=== PATIENT | male | born 1965 | race Caucasian/White ===

== ENCOUNTER 2022-12-25 16:54 | Inpatient (IN) | payer MEDICARE ==
[2022-12-25] MEDS ORDERED: ACETAMINOPHEN TAB 325 MG TAB PO PRN (17:45)
[2022-12-25] MEDS ORDERED: MAGNESIUM HYDROXIDE 2,400 MG/30 ML CUP PO PRN (17:45)
[2022-12-25] MEDS ORDERED: MAG HYDROX/AL HYDROX/SIMETH 30 ML CUP PO PRN (17:45)
[2022-12-25] MEDS ORDERED: LORazepam 1 MG TAB PO PRN ×2 (17:45)
[2022-12-25] MEDS ORDERED: HALOPERIDOL LACTATE 5 MG/ML 1 ML VIAL IM PRN (17:47)
[2022-12-25] MEDS ORDERED: QUEtiapine 50 MG TAB PO SCH (21:00)
[2022-12-26] MEDS: LEVOTHYROXINE 25 MCG TAB PO SCH (05:54)
[2022-12-26] MEDS: lisinopriL 10 MG TAB PO SCH (08:36)
[2022-12-26] MEDS ORDERED: NICOTINE 14MG/24HR PATCH TRANSDERM SCH (09:00)
[2022-12-26] MEDS ORDERED: ARIPiprazole 10 MG TAB PO SCH (09:00)
[2022-12-26] MEDS ORDERED: ESCITALOPRAM 20 MG TAB PO SCH (09:00)
[2022-12-26] MEDS ORDERED: PALIPERIDONE 3 MG TAB.ER.24 PO STA (10:09)
[2022-12-26] MEDS ORDERED: LORazepam 2 MG/ML INJ IM PRN (10:12)
[2022-12-26] MEDS ORDERED: LORazepam 1 MG TAB PO PRN (10:12)
[2022-12-26] MEDS: diazePAM 5 MG TAB PO PRN ×2 (10:55→18:45)
--- NOTE | 2022-12-26 10:57 | P.HP ---
Psychiatric H&P - . H&P Date: 12/26/22 History & Physical: Allergies Allergy/AdvReac Type Severity Reaction Status Date / Time No Known Allergies Allergy Verified 12/25/22 17:44 Vital Signs Temp 97.7 F 12/26/22 09:14 Pulse 69 12/26/22 09:14 Resp 20 12/26/22 09:14 BP 154/84 12/26/22 09:14 Pulse Ox 99 12/26/22 09:14 FiO2 Intake & Output 12/25/22 12/26/22 12/26/22 18:59 06:59 18:59 Weight 83.688 kg 84.55 kg 12/26/22 10:56 IDENTIFYING DATA: Patient is a single, on disability, 57-year-old male with a significant history of bipolar disorder who presented to our hospital from [facility] through central intake for acute jodi. HPI: Patient presented to the hospital on 12/25/2022 after initially presenting to [facility] for psychiatrc evaluation. The patient was noted to be overtly manic, confrontational, and requiring medications for agitation. He reportedly has been off his home medications of seroquel and trileptal for 3-4 weeks prior to his presentation to the ED. The patient was subsequently petitioned and certified and transferred to our psychiatric unit. Upon evaluations on our psychiatric unit, the patient is grossly manic. He is confrontational with peers, yelling many racial and sexual slurs. He is also displaying significant symptoms of jodi including pressured and loud speech, grandiosity (often states he is the smartest person in the hospital), mood lability (laughing, crying, and angry), and impulsivity. He is unable to provide a clear history of events leading up to this hospitalization however admits to his medication nonadherence. He states he was first manic at the age of 45. He reports that although he is currently "manic and bipolar 3" he has been sleeping well everynight for the past few months. He does state however that he has not eaten in the past 4-5 days. He does not report any suicidal or homicidal ideation, intention, and/or plan. He reports no prior attempts at suicide. He denies any depressive symptoms currently. In regards to psychotic symptoms, he is denying any auditory or visual hallucinations. He reports no paranoia or other delusions aside from grandiosity at this time. The patient states he is agreeable to treatment and will take medications prescribed by this provider however is demanding valium, coffee, a wristwatch and the use of his phone. PAST PSYCHIATRIC HISTORY: Patient states that he has been previously diagnosed with bipolar disorder. His current home medications include abilify, lexapro, seroquel. He however admits to nonadhernence. He recalls being previously prescribed lithium and zyprexa as well in the past. He reports he was last hospitalized in 2014 at [facility]. He reports outpatient psychiatric outpatient follow-up in [facility]. Patient denies any history of suicide at [facility] in the past. PMH: HTN ALLERGIES: NKDA CHEMICAL DEPENDENCY HISTORY: There is a [facility] days a week - approximately 2 beers and a few glasses of wine per day. However, the patient is denying any heavy alcohol use stating a pack of beer lasts him over a year. He reports no illicit drug use. He reports 1 gram of marijuana per day. He reports 2 PPD of tobacco use. FAMILY PSYCHIATRIC/SUBSTANCE USE HISTORY: Unable to determine. Patient states "my family wants nothing to do with me." SOCIAL HISTORY: Patient reports that he is single, never , but has 3 children. He reports his adult children are ages 28, 30, and 35. He is currently on disability. 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 MENTAL STATUS EXAM: General Appearance: Patient appears to be stated age is alert, difficult to direct, but attempts to cooperate. Patient appears to have fair hygiene and grooming. Behavior: Patient displays psychomotor agitation. Speech: Patient's speech is pressured, loud in volume, tangential. Mood/Affect: Patient reports their mood is "I NEED COFFEE!" Affect is expansive, labile. Suicidality/Homicidality: Patient denies suicidal and homicidal ideation. Perceptions: Patient reports no auditory or visual hallucinations. Though content/process: Flight of ideas, grandiose delusions, tangential. Memory and concentration: Grossly poor secondary to jodi Judgment and insight: Poor LABS FROM [facility]: No significant result except for pending T4. AST slightly elevated at 48. UDS positive for cannabis only. STRENGTHS/WEAKNESSES: Unable to identify patient strengths. Weakness is patient is nonadherent with treatment and has severe bipolar disorder. INTELLECT: average IMPRESSIONS: Bipolar 1 disorder, severe, manic episode Tobacco Use Disorder Cannabis Use Disorder PLAN: -Patient is admitted under involuntary status to [facility] for stabilization of psychiatric symptoms and safety. A second certification was completed and along with petition will be filed for court. -Medications : Will start patient on Valproic acid solution 500 mg twice a day for mood stabilization Invega 3 mg a day for mood stabilization/psychosis Valium 5 mg BID PRN for agitation/anxiety -Haldol and Ativan PRN for agitation/aggression -Patient was counselled on substance abuse and desired to cut back on use -Patient was informed of the risks, benefits and side effects of the medication and patient verbally consented to taking the medications. Patient signed med consent form and was placed in chart. -Internal Medicine consult to perform medical evaluation and physical. -NRT - nicotine patch -SW on board for discharge planning. Encourage patient to participate in groups to work on coping skills. 12/26/22 10:56
[2022-12-26] MEDS ORDERED: NICOTINE GUM (POLACRILEX) 2 MG GUM BUCCAL PRN (11:40)
[2022-12-26] MEDS: LORazepam 1 MG TAB PO PRN (14:19)
[2022-12-26] MEDS: NICOTINE GUM (POLACRILEX) 2 MG GUM BUCCAL PRN ×2 (14:19→20:12)
[2022-12-26] MEDS: NICOTINE 21MG/24HR PATCH TRANSDERM SCH (16:34)
[2022-12-26] MEDS: haloperidoL 5 MG TAB PO PRN (18:45)
[2022-12-26] MEDS: VALPROIC ACID ORAL SOLN 250 MG/5 ML CUP PO SCH (20:13)
--- NOTE | 2022-12-26 23:47 | P.CONS ---
History of Present Illness - Reason for Consult Consult date: 12/26/22 - History of Present Illness Patient is a 57-year-old male with a PMH of bipolar disorder and anxiety and tobacco abuse who had presented to the emergency room at an outside facility with symptoms of jodi. Patient was subsequently transferred to [facility] unit where he was seen and evaluated. The patient reports that he had been feeling depressed after his children and did not return his calls or speak to him for Father's Day. He denied any physical complaints at the time of interview. He reports smoking 2 packs of cigarettes daily. He denied alcohol or substance use. Review of systems: Pertinent positives and negatives as discussed in HPI, a complete review of systems was performed and all other systems are negative. Physical examination: Vital signs reviewed General: non toxic, no distress, appears at stated age, normal weight Derm: no unusual rashes/lesions, warm Head: atraumatic, normocephalic, symmetric Eyes: EOMI, no lid lag, anicteric sclera, pupils equal round reactive to light ENT: Nose and ears atraumatic Neck: No cervical lymphadenopathy, trachea midline, supple Mouth: no lip lesion, mucus membranes moist Cardiovascular: S1S2 reg, no murmur, positive dorsalis pedis pulse bilateral, no edema Lungs: CTA bilateral, no rhonchi, no rales, no accessory muscle use Abdominal: soft, nontender to palpation, no guarding Ext: muscle strength 5 out of 5 in all 4 extremities grossly, no gross muscle atrophy, no contractures, Neuro: CN II-XI grossly intact, no gross focal neuro deficits Psych: Alert, oriented, appropriate affect Assessment: Tobacco abuse Bipolar disorder Plan: Advised on the importance of cessation of tobacco use Defer management of bipolar disorder to the primary psychiatry service Past Medical History Additional Past Medical History / Comment(s): apendectomy, colonoscopy, wound debridement, tonsillectomy History of Any Multi-Drug Resistant Organisms: None Reported Past Surgical History: Appendectomy, Tonsillectomy Additional Past Surgical History / Comment(s): see above Past Psychological History: Anxiety, Bipolar, Depression Smoking Status: Current every day smoker Medications and Allergies Allergies Allergy/AdvReac Type Severity Reaction Status Date / Time No Known Allergies Allergy Verified 12/25/22 17:44 Physical Exam Vitals: Vital Signs Temp Pulse Resp BP Pulse Ox 12/26/22 09:14 97.7 F 69 20 154/84 99 12/25/22 23:40 97.4 F L 61 18 143/72 Intake and Output 12/26/22 12/26/22 12/26/22 06:59 14:59 22:59 Other: Weight 84.55 kg
[2022-12-27] MEDS: LEVOTHYROXINE 25 MCG TAB PO SCH (06:03)
[2022-12-27 07:05] VITALS: RESP 16
[2022-12-27] MEDS: PALIPERIDONE 6 MG TAB.ER.24 PO SCH (08:59)
[2022-12-27] MEDS: VALPROIC ACID ORAL SOLN 250 MG/5 ML CUP PO SCH ×2 (08:59→21:17)
[2022-12-27] MEDS: lisinopriL 10 MG TAB PO SCH (08:59)
[2022-12-27] MEDS: NICOTINE 21MG/24HR PATCH TRANSDERM SCH (08:59)
[2022-12-27] MEDS: diazePAM 5 MG TAB PO PRN (10:50)
[2022-12-27] MEDS: NICOTINE GUM (POLACRILEX) 2 MG GUM BUCCAL PRN ×2 (10:50→14:58)
--- NOTE | 2022-12-27 11:55 | P.PN ---
Progress Note - Text Progress Note Date: 12/27/22 Interval History: Patient was seen attending group and was directable and agreeable to speak with sheet writer in the office. Patient continues to display significant symptoms of jodi. He is very expansive in his affect and has been getting into numerous verbal altercation with peers. His mood continues to be labile. The patient continues to be grandiose. He states that he is suing numerous individuals. He has been adherent with his medications otherwise is not reporting any significant side effects. He is agreeable to titration of his medications. He has been able to sleep last night. He reports no suicidal or homicidal ideation, intention, and/or plan. Mental Status Exam: General Appearance: Patient appears to be stated age is alert, mostly directable, and cooperative. Behavior: Patient continues to display elevated psychomotor activity. Speech: Patient's speech is fluent and nonpressured. Loud in volume, spontaneous. Less pressured. Mood/Affect: Mood is "excellent." Affect is expansive and grandiose. Suicidality/Homicidality: Patient denies any suicidal or homicidal ideation, intention, and/or plan. Perceptions: Patient denies any visual hallucinations and denies any auditory hallucinations Though content/process: Grandiose. More linear and logical today. Memory and concentration: AOX3, grossly intact for the purposes of this session Judgment and insight: Improving mildly Vital Signs Temp 97.8 F 12/27/22 07:04 Pulse 67 12/27/22 09:07 Resp 16 12/27/22 07:04 BP 115/78 12/27/22 09:07 Pulse Ox 97 12/27/22 07:04 FiO2 Assessment Bipolar 1 disorder, severe, manic episode Tobacco Use Disorder Cannabis Use Disorder Plan: -Patient continues to meet criteria for inpatient psychiatric admission for symptom stabilization and safety. The patient has been petitioned and certified. -Medications: Increase Invega to 6 mg by mouth daily for mood stabilization/psychosis. Increase to invega 9 mg over the weekend. Consider STONE on Friday. Increase Depakote solution to 500 mg in the morning and 1000 mg at bedtime for mood stabilization Depakote level ordered for Friday. Valium 5 mg BID PRN for agitation/anxiety -Haldol and Ativan PRN for agitation/aggression -NRT - nicotine patch -SW on board for discharge planning. Encouraged the patient to participate in milieu.
[2022-12-27] MEDS: LORazepam 1 MG TAB PO PRN (14:58)
[2022-12-27] MEDS: haloperidoL 5 MG TAB PO PRN (14:58)
[2022-12-27 15:13] VITALS: BMI 27.5
[2022-12-28] MEDS: LEVOTHYROXINE 25 MCG TAB PO SCH (06:31)
[2022-12-28] MEDS: VALPROIC ACID ORAL SOLN 250 MG/5 ML CUP PO SCH (09:00)
[2022-12-28] MEDS: NICOTINE GUM (POLACRILEX) 2 MG GUM BUCCAL PRN (09:01)
[2022-12-28] MEDS: lisinopriL 10 MG TAB PO SCH (09:01)
[2022-12-28] MEDS: PALIPERIDONE 6 MG TAB.ER.24 PO SCH (09:03)
--- NOTE | 2022-12-28 10:08 | P.PN ---
Progress Note - Text Progress Note Date: 12/28/22 Interval history: Patient was seen wandering the hallways and was directable and agreeable to s peak with teletypewriter operator. Patient was more directable today and more cooperative during the interview. He appears to be less intrusive as well. His voice and tone also seem to be improving. He claimed that he was "medication resistant". He spoke more about why he came to the hospital. He claims that he is trying to go to some groups and was fairly visible on the unit. He has been taking medications. He states that he believes the Depakote dose is high for him however is agreeable to continue taking it. Denies any depression or anxiety. Claims that he slept better last night. At this time patient denies any suicidal or homicidal ideations intent or plan. Denies any Auditory or visual hallucinations. Patient denies any side effects from the medications and has been compliant with meds. Mental status exam: General Appearance: Patient appears to be stated age is alert, directable, and tends to be cooperative. Behavior: No agitated behavior. Patient is calm and directable, more organized today. Speech: Patient's speech is fluent and nonpressured. Less loud and intrusive. Mood/Affect: Mood is improving mildly, affect is congruent and constricted. Suicidality/Homicidality: Patient denies having any suicidal or homicidal ideation intent or plan. Perceptions: Patient denies any auditory or visual hallucinations. Though content/process: There is no evidence of any delusional thought content and thought process is linear and goal-directed. Less intrusive today. More focused on topic. Memory and concentration: AOX3, grossly intact for the purposes of this session Judgment and insight: Poor, improving mildly Assessment/Plan: Continue with current diagnosis. Patient continues to meet criteria for inpatient psychiatric admission for symptom stabilization and safety.Patient will be maintained on current psychotropic medication regimen. Monitor for medication compliance and for any psychotropic medication side effects. Will continue to monitor ongoing response to treatment. Encouraged participation in milieu.
[2022-12-28] MEDS: diazePAM 5 MG TAB PO PRN (11:14)
[2022-12-28] MEDS ORDERED: chlorproMAZINE 25 MG TAB PO ONE (11:56)
[2022-12-28] MEDS ORDERED: chlorproMAZINE 25 MG TAB PO PRN (12:01)
[2022-12-28] MEDS ORDERED: chlorproMAZINE 25 MG/ML 2 ML AMP IM PRN (12:01)
[2022-12-28] MEDS: NICOTINE 21MG/24HR PATCH TRANSDERM SCH (12:20)
[2022-12-28] MEDS: LORazepam 1 MG TAB PO PRN (14:15)
[2022-12-29] MEDS: PALIPERIDONE 6 MG TAB.ER.24 PO SCH ×3 (02:01→21:56)
[2022-12-29] MEDS: VALPROIC ACID ORAL SOLN 250 MG/5 ML CUP PO SCH ×3 (02:01→21:58)
[2022-12-29] MEDS: LEVOTHYROXINE 25 MCG TAB PO SCH (06:17)
[2022-12-29] MEDS ORDERED: PALIPERIDONE 3 MG TAB.ER.24 PO SCH (09:00)
[2022-12-29] MEDS: lisinopriL 10 MG TAB PO SCH (09:04)
[2022-12-29] MEDS: NICOTINE 21MG/24HR PATCH TRANSDERM SCH (09:04)
[2022-12-29] MEDS: NICOTINE GUM (POLACRILEX) 2 MG GUM BUCCAL PRN ×2 (09:05→14:42)
[2022-12-29] MEDS: diazePAM 5 MG TAB PO PRN ×2 (11:01→23:43)
[2022-12-29 11:05] LABS: Basophils % (A) 1 %; Eosinophils # (A) 0.3 k/uL (0-0.7); Eosinophils % (A) 5 %; HCT 49.6 % (39.0-53.0); HGB 15.9 gm/dL (13.0-17.5); Lymphocytes # (A) 1.6 k/uL (1.0-4.8); Lymphocytes % (A) 24 %; MCH 29.2 pg (25.0-35.0); MCHC 32.1 g/dL (31.0-37.0); MCV 91.1 fL (80.0-100.0); Mean Platelet Volume 8.1; Monocytes # (A) 0.3 k/uL (0-1.0); Monocytes % (A) 5 %; Neutrophils # (A) 4.3 k/uL (1.3-7.7); Neutrophils % (A) 65 %; Platelet Count 193 k/uL (150-450); RBC 5.44 m/uL (4.30-5.90); RDW 13.8 % (11.5-15.5); WBC 6.5 k/uL (3.8-10.6)
[2022-12-29 11:10] LABS: ALT 18 U/L (4-49); AST 27 U/L (17-59); African American GFR (CKD) >90 (>60 ml/min/1.73 sqM); Albumin 4.1 g/dL (3.5-5.0); Alkaline Phosphatase 54 U/L (38-126); Anion Gap 8 mmol/L; Blood Urea Nitrogen 17 mg/dL (9-20); Calcium 9.3 mg/dL (8.4-10.2); Carbon Dioxide 29 mmol/L (22-30); Chloride 101 mmol/L (98-107); Glucose 85 mg/dL (74-99); Non-African American GFR(CKD) >90 (>60 ml/min/1.73 sqM); Potassium 4.7 mmol/L (3.5-5.1); Sodium 138 mmol/L (137-145); Total Bilirubin 0.5 mg/dL (0.2-1.3); Total Protein 6.8 g/dL (6.3-8.2)
[2022-12-29 11:15] LABS: Valproic Acid (Depakene) 41.5 ug/mL
--- NOTE | 2022-12-29 12:11 | P.PN ---
Progress Note - Text Progress Note Date: 12/29/22 Interval history: Patient was seen wandering the hallways near the nurse's desk speaking to ano ther patient. Patient was agreeable to speak to magnetic tape typewriter operator today for evaluation. Patient earlier had a verbal altercation with another patient earlier in group and was asked to be leave the group today. Patient states that he is doing "okay" and was focused on the Depakote. He states that "I've been trying to convince other doctors to put me on the stuff for a long time". He claims that after he took the Thorazine yesterday he felt like he was "drunk the whole day". We spoke about the use of when necessary medications. He appears to be mildly less intrusive today however still unpredictable. Has been taking his medications. Appears to be less irritable and less demanding today. Claims that he slept fairly last night. He claims that he is trying to go to some groups and was fairly visible on the unit. He has been taking medications. Denies any depression or anxiety. At this time patient denies any suicidal or homicidal ideations intent or plan. Denies any Auditory or visual terrazas ucinations. Patient denies any side effects from the medications and has been compliant with meds. Mental status exam: General Appearance: Patient appears to be stated age is alert, directable, and tends to be subsequently be cooperative. Behavior: No agitated behavior. Patient is calm and directable, more organized today. Speech: Patient's speech is fluent and nonpressured. Less loud and intrusive. Mood/Affect: Mood is improving mildly, affect is congruent and constricted. Suicidality/Homicidality: Patient denies having any suicidal or homicidal ideation intent or plan. Perceptions: Patient denies any auditory or visual hallucinations. Though content/process: There is no evidence of any delusional thought content and thought process is linear and goal-directed. Less intrusive today. More focused on topic. Memory and concentration: AOX3, grossly intact for the purposes of this session Judgment and insight: Poor, improving mildly Assessment/Plan: Continue with current diagnosis. Patient continues to meet criteria for inpatient psychiatric admission for symptom stabilization and safety.Patient will be maintained on current psychotropic medication regimen. Monitor for medication compliance and for any psychotropic medication side effects. Will continue to monitor ongoing response to treatment. Encouraged participation in milieu.
[2022-12-29] MEDS: LORazepam 1 MG TAB PO PRN (15:18)
[2022-12-30] MEDS: VALPROIC ACID ORAL SOLN 250 MG/5 ML CUP PO SCH ×2 (09:00→21:34)
[2022-12-30] MEDS: lisinopriL 10 MG TAB PO SCH (09:00)
[2022-12-30] MEDS: LEVOTHYROXINE 25 MCG TAB PO SCH (09:00)
[2022-12-30] MEDS: PALIPERIDONE 6 MG TAB.ER.24 PO SCH ×2 (09:00→21:34)
[2022-12-30] MEDS: NICOTINE 21MG/24HR PATCH TRANSDERM SCH (09:00)
--- NOTE | 2022-12-30 11:16 | P.PN ---
Progress Note - Text Progress Note Date: 12/30/22 Interval History: Patient was seen resting in bed and was directable and agreeable to speak with database report writer in his room. Currently, the patient is not reporting any suicidal or homicidal ideation, intention, and/or plan. The patient had been episodes of agitation and required Thorazine as needed in order to calm down. This morning however, the patient is alert and oriented in all spheres and is not reporting any significant symptoms of jodi at this time. He denies any grandiose delusions. He reports no racing thoughts. He reports that he is able to sleep well last night. He states that he feels "calm and at peace. He has been adherent with his medications and is not reporting any significant side effects. He reports no issues regarding his sleep or his appetite. Mental Status Exam: General Appearance: Patient appears to be stated age is alert, mostly direc table, and cooperative. Behavior: Patient continues to display elevated psychomotor activity. Speech: Patient's speech is fluent and nonpressured. Normal volume. Spontaneous. Not pressured. Mood/Affect: Mood is "I feel at peace now." Affect is euthymic. Suicidality/Homicidality: Patient denies any suicidal or homicidal ideation, intention, and/or plan. Perceptions: Patient denies any visual hallucinations and denies any auditory hallucinations Though content/process: No overt delusional thought content is endorsed today. Linear and logical conversation. Memory and concentration: AOX3, grossly intact for the purposes of this session Judgment and insight: Improving mildly Vital Signs Temp 97.2 F L 12/30/22 00:19 Pulse 74 12/30/22 09:02 Resp 16 12/30/22 00:19 BP 104/67 12/30/22 09:02 Pulse Ox 97 12/27/22 07:04 FiO2 Intake & Output 12/29/22 12/30/22 12/30/22 18:59 06:59 18:59 Weight 87.9 kg Laboratory Results WBC 6.5 k/uL (3.8-10.6) 12/29/22 09:24 RBC 5.44 m/uL (4.30-5.90) 12/29/22 09:24 Hgb 15.9 gm/dL (13.0-17.5) 12/29/22 09:24 Hct 49.6 % (39.0-53.0) 12/29/22 09:24 MCV 91.1 fL (80.0-100.0) 12/29/22 09:24 MCH 29.2 pg (25.0-35.0) 12/29/22 09:24 MCHC 32.1 g/dL (31.0-37.0) 12/29/22 09:24 RDW 13.8 % (11.5-15.5) 12/29/22 09:24 Plt Count 193 k/uL (150-450) 12/29/22 09:24 MPV 8.1 12/29/22 09:24 Neutrophils % 65 % 12/29/22 09:24 Lymphocytes % 24 % 12/29/22 09:24 Monocytes % 5 % 12/29/22 09:24 Eosinophils % 5 % 12/29/22 09:24 Basophils % 1 % 12/29/22 09:24 Neutrophils # 4.3 k/uL (1.3-7.7) 12/29/22 09:24 Lymphocytes # 1.6 k/uL (1.0-4.8) 12/29/22 09:24 Monocytes # 0.3 k/uL (0-1.0) 12/29/22 09:24 Eosinophils # 0.3 k/uL (0-0.7) 12/29/22 09:24 Basophils # 0.0 k/uL (0-0.2) 12/29/22 09:24 Sodium 138 mmol/L (137-145) 12/29/22 09:24 Potassium 4.7 mmol/L (3.5-5.1) 12/29/22 09:24 Chloride 101 mmol/L (98-107) 12/29/22 09:24 Carbon Dioxide 29 mmol/L (22-30) 12/29/22 09:24 Anion Gap 8 mmol/L 12/29/22 09:24 BUN 17 mg/dL (9-20) 12/29/22 09:24 Creatinine 0.92 mg/dL (0.66-1.25) 12/29/22 09:24 Est GFR (CKD-EPI)AfAm >90 (>60 ml/min/1.73 sqM) 12/29/22 09:24 Est GFR (CKD-EPI)NonAf >90 (>60 ml/min/1.73 sqM) 12/29/22 09:24 Glucose 85 mg/dL (74-99) 12/29/22 09:24 Calcium 9.3 mg/dL (8.4-10.2) 12/29/22 09:24 Total Bilirubin 0.5 mg/dL (0.2-1.3) 12/29/22 09:24 AST 27 U/L (17-59) 12/29/22 09:24 ALT 18 U/L (4-49) 12/29/22 09:24 Alkaline Phosphatase 54 U/L (38-126) 12/29/22 09:24 Total Protein 6.8 g/dL (6.3-8.2) 12/29/22 09:24 Albumin 4.1 g/dL (3.5-5.0) 12/29/22 09:24 Valproic Acid 41.5 ug/mL 12/29/22 09:24 Assessment Bipolar 1 disorder, severe, manic episode Tobacco Use Disorder Cannabis Use Disorder Plan: -Patient continues to meet criteria for inpatient psychiatric admission for symptom stabilization and safety. The patient has been petitioned and certified. Patient is scheduled for deferral today. -Medications: Continue Invega 6 mg by mouth twice a day for mood stabilization/psychosis Continue Depakote 500 mg in the morning and 1000 mg at bedtime for mood stabilization Depakote level ordered for Friday. Valium 5 mg BID PRN for agitation/anxiety -Thorazine and Ativan PRN for agitation/aggression -NRT - nicotine patch - on board for discharge planning. Encouraged the patient to participate in milieu.
[2022-12-30] MEDS: NICOTINE GUM (POLACRILEX) 2 MG GUM BUCCAL PRN ×2 (16:46→18:59)
[2022-12-30] MEDS: diazePAM 5 MG TAB PO PRN (16:46)
[2022-12-31] MEDS: LEVOTHYROXINE 25 MCG TAB PO SCH (06:39)
[2022-12-31 07:08] VITALS: BP 75/50; PULSE 69; TEMP 98.3
[2022-12-31] MEDS: PALIPERIDONE 6 MG TAB.ER.24 PO SCH (08:56)
[2022-12-31] MEDS: lisinopriL 10 MG TAB PO SCH (08:56)
[2022-12-31] MEDS: VALPROIC ACID ORAL SOLN 250 MG/5 ML CUP PO SCH (08:57)
[2022-12-31] MEDS: NICOTINE 21MG/24HR PATCH TRANSDERM SCH (08:57)
--- NOTE | 2022-12-31 11:45 | P.DS ---
Providers Date of admission: 12/25/22 22:04 Expected date of discharge: 12/31/22 Attending physician: Dylon Martinez MD Consults: 12/25/22 17:45 Consult Physician Routine Consulting Provider: [facility] Consult Reason/Comments: H&P Do you want consulting provider notified?: Yes Primary care physician: Physician Nonstaff - Discharge Diagnosis(es) (1) Severe manic bipolar 1 disorder with psychotic behavior Current Visit: Yes Status: Acute Priority: High (2) Cannabis use disorder Current Visit: Yes Status: Chronic Priority: Medium (3) Tobacco use disorder Current Visit: Yes Status: Chronic Priority: Low Hospital Course: Admission HPI: Patient is a single, on disability, 57-year-old male with a significant history of bipolar disorder who presented to our hospital from [facility] for acute jodi. Patient presented to the hospital on 12/25/2022 after initially presenting to [facility] for psychiatrc evaluation. The patient was noted to be overtly manic, confrontational, and requiring medications for agitation. He reportedly has been off his home medications of seroquel and trileptal for 3-4 weeks prior to his presentation to the ED. The patient was subsequently petitio aminata and certified and transferred to our psychiatric unit. Upon evaluations on our psychiatric unit, the patient is grossly manic. He is confrontational with peers, yelling many racial and sexual slurs. He is also displaying significant symptoms of jodi including pressured and loud speech, grandiosity (often states he is the smartest person in the hospital), mood lability (laughing, crying, and angry), and impulsivity. He is unable to provide a clear history of events leading up to this hospitalization however admits to his medication nonadherence. He states he was first manic at the age of 45. He reports that although he is currently "manic and bipolar 3" he has been sleeping well everynight for the past few months. He does state however that he has not eaten in the past 4-5 days. He does not report any suicidal or homicidal ideation, intention, and/or plan. He reports no prior attempts at suicide. He denies any depressive symptoms currently. In regards to psychotic symptoms, he is denying any auditory or visual hallucinations. He reports no paranoia or other delusions aside from grandiosity at this time. The patient states he is agreeable to treatment and will take medications prescribed by this provider however is demanding valium, coffee, a wristwatch and the use of his phone. Patient states that he has been previously diagnosed with bipolar disorder. His current home medications include abilify, lexapro, seroquel. He however admits to nonadhernence. He recalls being previously prescribed lithium and zyprexa as well in the past. He reports he was last hospitalized in 2014 at [facility]. He reports outpatient psychiatric outpatient follow-up in [facility]. Patient denies any history of suicide attempts in the past. Hospital course: Upon admission to the unit patient was initially overtly manic, confrontational, and labile. Patient was however directable and agreeable to commence treatment. The patient was often confrontational with staff and peers. He was also disruptive to the milieu. However, he was adherent with his medications which are gradually titrated. There were times that the patient required medications for agitation. Over time, the patient responded to his medications and became much more linear and logical conversation with improved frustration tolerance and impulse control. He was compliant with his medications and reported no significant side effects. He was started on a regimen of Invega and Depakote. The patient also deferred mental health court. He spoke of his stressors and engaged in both individual and milieu therapies. He is also seen by the medical team for history and physical examination. On the day of his discharge, the patient is reporting future and goal orientation is linear and logical and conv ersation. He expresses a desire to return home so that he may get in contact with animal control and oriented to obtain his chickens again, pay bills, and clean up his home. He does not endorse any overt psychotic or manic symptoms. He reports no suicidal or homicidal ideation, intention, and/or plan. He reports no access to firearms or other weapons. He is denying any auditory or visual hallucinations. He reports no paranoia or other delusions. The patient was counseled at length on the importance of medication adherence appropriate outpatient follow-up. The patient vehemently states that he will take his medications. 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 The patient does have significant history of substance abuse and was counseled at great length on abstaining from all substances including alcohol, tobacco, marijuana, and all illicit drugs. He reports some medical issues or concerns in the day of discharge and is denying any chest pain, shyness of breath, palpitations, akathisia, tardive dyskinesia, nausea, or vomiting. He reports no lightheadedness or dizziness. Prior to discharge, a eting will be arranged by neonatal social worker to answer any questions and ensure safety. Mental status exam: General Appearance: Patient appears to be stated age is alert, pleasant, and cooperative. Patient is in no acute distress and has fair hygiene and grooming Behavior: Patient is calmly seated without any agitated behavior. Speech: Patient's speech is fluent and nonpressured. Mood/Affect: Patient reports their mood is "much better", affect is congruent and euthymic. Suicidality/Homicidality: Patient denies having any suicidal or homicidal ideation intent or plan. Perceptions: Patient denies any auditory or visual hallucinations. Though content/process: There is no evidence of any delusional thought content and thought process is linear and goal-directed. He is future and goal oriented. Memory and concentration: AOX3, grossly intact for the purposes of this session. Can spell "WORLD" backwards correctly. Judgment and insight: Improved with guarded prognosis Impression: Bipolar 1 disorder, severe, manic episode Tobacco Use Disorder Cannabis Use Disorder Plan: -Continue with discharge today as patient has improved and stabilized psychiatrically and is not currently an imminent threat to himself and/or others. Patient will remain at chronically elevated risk for harm to self and/or others due to his impulsivity, severity of his mental illness, and the chronicity of his mental illness. -Continue medications: Invega 6 mg by mouth twice a day for mood stabilization/psychosis Depakene syrup 500 mg in the morning and 1009 g at bedtime for mood stabilization Synthroid for thyroid disorder -Patient was counseled on the need for medication compliance and appropriate follow-up at mental health and also primary care for medical issues. Patient verbalized understanding and agreed. -Social work to arrange for and conduct family meeting to ensure safety upon discharge and answer any questions/concerns. Social work also to arrange for patients follow up appointments with [facility] for psychiatric care along with follow up with primary care provider. -Patient counseled on abstaining from recreational drugs and marijuana and alcohol. Was informed/educated on the adverse effects on their physical and mental health. Patient verbally agreed and understood. -Patient was instructed to return to the hospital or seek immediate medical care if their psychiatric or medical symptoms do worsen or reoccur. -Psychoeducation and supportive therapy provided to patient. Risks and benefits of pharmacological treatment versus the risks and benefits of nontreatment weighed and discussed. Informed consent discussion held. Common side effects of psychotropics discussed such as, but not limited to headache, GI disturbance, sexual dysfunction, movement disorders, sedation, and orthostatic hypotension. Life threatening and blackbox warnings of prescribed medications also discussed. Potential risks of operating a vehicle or heavy machinery discussed with patient at length. Advised on importance of compliance and a reliable and responsible manner. Patient advised to review FDA consumer labeling of all medications prior to taking. Patient verbalized understanding of potential risks, and agrees with current treatment plan. Patient advised to medically contact physician/emergency personnel if any acute changes in condition occur. Vital Signs Temp 98.3 F 12/31/22 07:08 Pulse 69 12/31/22 07:08 Resp 16 12/31/22 07:08 BP 75/50 12/31/22 07:08 Pulse Ox 94 L 12/31/22 07:08 FiO2 Laboratory Results WBC 6.5 k/uL (3.8-10.6) 12/29/22 09:24 RBC 5.44 m/uL (4.30-5.90) 12/29/22 09:24 Hgb 15.9 gm/dL (13.0-17.5) 12/29/22 09:24 Hct 49.6 % (39.0-53.0) 12/29/22 09:24 MCV 91.1 fL (80.0-100.0) 12/29/22 09:24 MCH 29.2 pg (25.0-35.0) 12/29/22 09:24 MCHC 32.1 g/dL (31.0-37.0) 12/29/22 09:24 RDW 13.8 % (11.5-15.5) 12/29/22 09:24 Plt Count 193 k/uL (150-450) 12/29/22 09:24 MPV 8.1 12/29/22 09:24 Neutrophils % 65 % 12/29/22 09:24 Lymphocytes % 24 % 12/29/22 09:24 Monocytes % 5 % 12/29/22 09:24 Eosinophils % 5 % 12/29/22 09:24 Basophils % 1 % 12/29/22 09:24 Neutrophils # 4.3 k/uL (1.3-7.7) 12/29/22 09:24 Lymphocytes # 1.6 k/uL (1.0-4.8) 12/29/22 09:24 Monocytes # 0.3 k/uL (0-1.0) 12/29/22 09:24 Eosinophils # 0.3 k/uL (0-0.7) 12/29/22 09:24 Basophils # 0.0 k/uL (0-0.2) 12/29/22 09:24 Sodium 138 mmol/L (137-145) 12/29/22 09:24 Potassium 4.7 mmol/L (3.5-5.1) 12/29/22 09:24 Chloride 101 mmol/L (98-107) 12/29/22 09:24 Carbon Dioxide 29 mmol/L (22-30) 12/29/22 09:24 Anion Gap 8 mmol/L 12/29/22 09:24 BUN 17 mg/dL (9-20) 12/29/22 09:24 Creatinine 0.92 mg/dL (0.66-1.25) 12/29/22 09:24 Est GFR (CKD-EPI)AfAm >90 (>60 ml/min/1.73 sqM) 12/29/22 09:24 Est GFR (CKD-EPI)NonAf >90 (>60 ml/min/1.73 sqM) 12/29/22 09:24 Glucose 85 mg/dL (74-99) 12/29/22 09:24 Calcium 9.3 mg/dL (8.4-10.2) 12/29/22 09:24 Total Bilirubin 0.5 mg/dL (0.2-1.3) 12/29/22 09:24 AST 27 U/L (17-59) 12/29/22 09:24 ALT 18 U/L (4-49) 12/29/22 09:24 Alkaline Phosphatase 54 U/L (38-126) 12/29/22 09:24 Total Protein 6.8 g/dL (6.3-8.2) 12/29/22 09:24 Albumin 4.1 g/dL (3.5-5.0) 12/29/22 09:24 Valproic Acid 41.5 ug/mL 12/29/22 09:24 Allergies Allergy/AdvReac Type Severity Reaction Status Date / Time No Known Allergies Allergy Verified 12/25/22 17:44 Patient Condition at Discharge: Stable Plan - Discharge Summary Discharge Rx Participant: Yes New Discharge Prescriptions: New Valproic Acid Oral Soln [Depakene Syrup] 1,000 mg PO HS 30 Days #600 ml Valproic Acid Oral Soln [Depakene Syrup] 500 mg PO DAILY 30 Days #300 ml Paliperidone [Invega] 6 mg PO BID 30 Days #60 tab Levothyroxine Sodium [Synthroid] 25 mcg PO DAILY@30 30 Days #30 tab lisinopriL [Zestril] 10 mg PO DAILY 30 Days #30 tab Discharge Medication List Levothyroxine Sodium [Synthroid] 25 mcg PO DAILY@30 30 Days #30 tab 12/31/22 [Rx] Paliperidone [Invega] 6 mg PO BID 30 Days #60 tab 12/31/22 [Rx] Valproic Acid Oral Soln [Depakene Syrup] 1,000 mg PO HS 30 Days #600 ml 12/31/22 [Rx] Valproic Acid Oral Soln [Depakene Syrup] 500 mg PO DAILY 30 Days #300 ml 12/31/22 [Rx] lisinopriL [Zestril] 10 mg PO DAILY 30 Days #30 tab 12/31/22 [Rx] Follow up Appointment(s)/Referral(s): [facility] [Other] - 1 Week Patient Instructions/Handouts: Depression (DC) Activity/Diet/Wound Care/Special Instructions: Avoid the use of street drugs and alcohol. Take all medications as prescribed. When you are in need of refills on your medications, please contact your medical provider and/or outpatient psychiatrist to have this done. Please go to scheduled outpatient appointments for aftercare treatment. If symptoms return or become worse, call the crisis line at and/or go to the nearest emergency room for evaluation. Discharge Disposition: HOME SELF-CARE
== END 2022-12-31 12:55 | disposition home or self-care (01) | DRG 885 ==
LOC: 3MHU 22:04
PROVIDERS: ADMIT Psychiatry & Neurology Psychiatry; ATTEND Psychiatry & Neurology Psychiatry
DX: F31.2 Bipolar disorder, current episode manic severe with psychotic features (principal); I95.9 Hypotension, unspecified; F17.210 Nicotine dependence, cigarettes, uncomplicated; F12.10 Cannabis abuse, uncomplicated; Z71.51 Drug abuse counseling and surveillance of drug abuser; F41.9 Anxiety disorder, unspecified; I10 Essential (primary) hypertension; Z91.148 Patient's other noncompliance with medication regimen for other reason; R45.1 Restlessness and agitation; Z71.6 Tobacco abuse counseling; Z79.899 Other long term (current) drug therapy; Z28.21 Immunization not carried out because of patient refusal; Z28.310 Unvaccinated for COVID-19
CPT/HCPCS: 80053; 80164; 85025